=== PATIENT | male | born 1955 | race Caucasian/White ===

== ENCOUNTER 2025-07-15 14:09 | Emergency (ER) | payer MEDICARE ==
[~2025-07-15] VITALS: Ht 175.3 cm; Wt 107.7 kg
[2025-07-15 14:20] VITALS: TEMP 96.9
[2025-07-15 14:46] LABS: VENOUS BASE EXCESS -1.2 (-2.0-2.0); VENOUS HCO3 24.1 MMOL/L (23.0-27.0); VENOUS O2 SATURATION 94.5 % (60.0-80.0); VENOUS PARTIAL PRESSURE CO2 42.3 mmHg (38.0-50.0); VENOUS PARTIAL PRESSURE O2 73.4 mmHg (30.0-50.0); VENOUS PH 7.373 UNITS (7.330-7.430); VENOUS STANDARD HCO3 23.4 MMOL/L; VENOUS TOTAL CO2 25.4 MMOL/L (24.0-28.0)
[2025-07-15 14:49] LABS: BASO # 0.1 10^3/uL (0.0-0.2); BASO % 0.8 % (0.0-1.0); EOS # 0.3 10^3/uL (0.0-0.5); EOS % 2.2 % (0.0-3.0); LYMPH # 1.5 10^3/uL (1.5-5.0); LYMPH % 13.0 % (24.0-44.0); MONO # 1.0 10^3/uL (0.0-0.8); MONO % 8.6 % (2.0-8.0); NEUTROPHILS # 8.8 10^3/uL (1.5-8.5); NEUTROPHILS % 74.7 % (36.0-66.0); PLATELET COUNT, AUTOMATED 217 10^3/uL (150-450)
[2025-07-15] MEDS: ALPRAZolam 0.5 MG TAB PO ONE (14:52)
[2025-07-15 15:05] LABS: INR 0.92
[2025-07-15 15:23] LABS: CK-MB VALUE MASS 2.7 NG/ML (<3.6)
[2025-07-15 15:26] LABS: ALT/SGPT 19 U/L (7.0-40); AST/SGOT 24 U/L (<34); CALCIUM LEVEL 9.1 MG/DL (8.3-10.6); CARBON DIOXIDE LEVEL 27 MMOL/L (20-31); CHLORIDE LEVEL 105 MMOL/L (98-107); CREATININE FOR GFR 0.81 MG/DL (0.70-1.30); GLOMERULAR FILTRATION RATE > 90.0 (>49); POTASSIUM SERUM 4.7 MMOL/L (3.5-5.1); SODIUM LEVEL 141 MMOL/L (136-145)
[2025-07-15 15:28] LABS: FREE T4 1.13 NG/DL (0.89-1.76)
[2025-07-15 15:30] LABS: CPK CREATINE PHOSPHOKINASE 82 U/L (46-171); MB/CK RELATIVE INDEX 3.29 (< OR =4)
[2025-07-15] MEDS ORDERED: ISOVUE-370 76% 100 ML VIAL As Ordered ONE (15:46)
[2025-07-15 16:44] LABS: CK-MB VALUE MASS 2.6 NG/ML (<3.6)
[2025-07-15 16:47] LABS: CPK CREATINE PHOSPHOKINASE 76.0 U/L (46-171); MB/CK RELATIVE INDEX 3.42 (< OR =4)
[2025-07-15 18:05] VITALS: BP 130/92; O2SAT 93
== END 2025-07-15 18:13 | disposition home or self-care (01) ==
LOC: M ED 15:18
DX: R06.00 Dyspnea, unspecified (principal); R42 Dizziness and giddiness; R91.1 Solitary pulmonary nodule; D13.4 Benign neoplasm of liver; I25.2 Old myocardial infarction; I48.91 Unspecified atrial fibrillation; I10 Essential (primary) hypertension; E78.5 Hyperlipidemia, unspecified; K21.9 Gastro-esophageal reflux disease without esophagitis; F12.10 Cannabis abuse, uncomplicated; F41.9 Anxiety disorder, unspecified
CPT/HCPCS: 36415; 70450; 71045; 71275; 80047; 80048; 80076; 82550; 82553; 82803; 83690; 83880; 84439; 84443; 84484; 85025; 85610; 85730; 87486; 87581; 87633; 87798; 93005; 93041; 94760; 99285; Q9967